=== PATIENT | female | born 1990 | race African-American/Black ===

== ENCOUNTER 2023-01-24 20:01 | Emergency (ER) | payer SELFPAY ==
[~2023-01-24] VITALS: Ht 167.6 cm; Wt 74.8 kg
[2023-01-24 20:07] VITALS: BP_SYST 144; PULSE 102; RESP 20; TEMP 97.9; O2SAT 97
[2023-01-24] MEDS ORDERED: NITROGLYCERIN 0.4 MG TAB.SUBL SL ONE (20:30)
[2023-01-24] MEDS ORDERED: ASPIRIN 81 MG TAB.CHEW PO ONE (20:30)
[2023-01-24] MEDS ORDERED: ONDANSETRON HCL 4 MG/2 ML VIAL IVP ONE (20:30)
[2023-01-24 20:56] LABS: BASOPHILS % (AUTO) 0.4 % (0.0-2.0); EOSINOPHILS % (AUTO) 0.4 % (0.0-4.0); HEMATOCRIT 36.7 % (36-48); HEMOGLOBIN 12.3 g/dL (12.0-16.0); LYMPHOCYTES # (AUTO) 2.2 K/uL (1.0-5.5); LYMPHOCYTES % (AUTO) 23.8 % (20.5-51.5); MEAN CORPUSCULAR HEMOGLOBIN 27 pg (27-31); MEAN CORPUSCULAR HGB CONC 34 % (32-36); MEAN CORPUSCULAR VOLUME 81 fL (79.0-98.0); MONOCYTES # (AUTO) 0.6 K/uL (0.0-1.0); MONOCYTES % (AUTO) 6.3 % (1.7-9.3); NEUTROPHILS # (AUTO) 6.5 K/uL (1.8-7.7); NEUTROPHILS % (AUTO) 69.1 % (40.0-70.0); PLATELET COUNT (AUTO) 399 K/uL (130-430); RED BLOOD CELL COUNT(AUTO) 4.53 MIL/uL (4.2-6.2); RED CELL DISTRIBUTION WIDTH 13.3 % (9.0-15.0); WHITE BLOOD COUNT (AUTO) 9.4 K/uL (4.8-10.8)
[2023-01-24 21:19] LABS: ALANINE AMINOTRANSFERASE 8 U/L (12-78); ALBUMIN 4.1 g/dL (3.4-4.8); ANION GAP 11 (5-15); ASPARTATE AMINOTRANSFERASE 12 U/L (10-37); CALCIUM 9.1 mg/dL (8.4-11.0); CARBON DIOXIDE 23 mmol/L (23-29); CHLORIDE 107 mmol/L (98-107); CREATININE 0.77 mg/dL (0.55-1.30); GFR AFRICAN AMERICAN 113 mL/min (>90); GLUCOSE 113 mg/dL (74-106); SODIUM SERUM 141 mmol/L (136-145); TOTAL BILIRUBIN 0.9 mg/dL (0.0-1.0); TOTAL PROTEIN, SERUM 7.6 g/dL (6.4-8.3); UREA NITROGEN, BLOOD 9 mg/dL (8-21)
[2023-01-24 21:23] LABS: GFR NON AFRICAN-AMERICAN 94 mL/min (>90)
[2023-01-24 21:26] LABS: POTASSIUM 2.9 mmol/L (3.5-5.1)
[2023-01-24] MEDS ORDERED: POTASSIUM CHLORIDE 20 MEQ TAB.PRT.SR PO ONE (21:30)
[2023-01-24] MEDS ORDERED: ONDA-8 TL (22:09)
[2023-01-24] MEDS ORDERED: OMEP20CA15 PO (22:09)
[2023-01-24 22:55] VITALS: BP_SYST 135; PULSE 80; RESP 18; TEMP 97.9; O2SAT 97
== END 2023-01-24 22:55 | disposition home or self-care (01) ==
LOC: SED 20:01
DX: R07.89 Other chest pain (principal); E87.6 Hypokalemia; R11.10 Vomiting, unspecified; Z79.899 Other long term (current) drug therapy
CPT/HCPCS: 99291; 96374; 80053; 83880; 85025; 85379; 84484; 36415; 93005; 71045; J2405